=== PATIENT | female | born 1960 | race Hispanic/Latino ===

== ENCOUNTER 2024-09-18 07:40 | Day surgery (SDC) | payer MEDICARE ==
[~2024-09-18] VITALS: Ht 160 cm; Wt 64.9 kg
[2024-09-18] VITALS (10 sets, daily range): BP systolic 109–147; BP diastolic 68–81; PULSE 60–68; RESP 14–16; TEMP 96.7–97.2
[2024-09-18] MEDS ORDERED: HALO10 PO (10:06)
[2024-09-18] MEDS ORDERED: BENZ2TAB71 PO (10:06)
[2024-09-18] MEDS ORDERED: METF-446 PO (10:06)
[2024-09-18] MEDS ORDERED: ATOR10 PO (10:06)
[2024-09-18] MEDS ORDERED: PANT40TA54 PO (10:06)
[2024-09-18] MEDS ORDERED: SITA100T12 PO (10:06)
[2024-09-18] MEDS ORDERED: proPOFol 10 MG/ML 20ML VIAL IV ONE ×2 (11:54→12:06)
--- NOTE | 2024-09-18 13:18 | NUR ---
Full and complete discharge instructions given to Patient and Family both verbally and in writing. Explained GI procedure precautions and follow up. All questions answered. PIV removed with catheter tip intact. Home with Family W/C to POV.
== END 2024-09-18 13:19 | disposition home or self-care (01) ==
LOC: ENDO 07:40
PROVIDERS: ATTEND Internal Medicine
DX: R93.3 Abnormal findings on diagnostic imaging of other parts of digestive tract (principal); K86.89 Other specified diseases of pancreas; C77.2 Secondary and unspecified malignant neoplasm of intra-abdominal lymph nodes; R16.0 Hepatomegaly, not elsewhere classified; K80.50 Calculus of bile duct without cholangitis or cholecystitis without obstruction; E11.9 Type 2 diabetes mellitus without complications; E66.9 Obesity, unspecified; Z68.25 Body mass index [BMI] 25.0-25.9, adult; Z79.01 Long term (current) use of anticoagulants; Z88.0 Allergy status to penicillin
CPT/HCPCS: 43238; J2704 ×2; A4620; A4215 ×3; A4223; A4222; A4221; A4663; J7030; A4606; J3490